=== PATIENT | male | born 1970 | race American Indian/Alaskan Native ===

== ENCOUNTER 2018-05-18 05:08 | Day surgery (SDC) | payer OTHER ==
[2018-05-17 10:18] VITALS: BMI 33.8
--- NOTE | 2018-05-18 09:44 | HP ---
History & Physical Update - History History: No Change - Physical Physical: No Change - Assessment Assessment: No Change - Plan Plan: No Change (Large ventral/ umbilical hernia for repair, laparoscopic / possible open with mesh. Procedure explained with risks, benefits and compications.)
[2018-05-18] MEDS ORDERED: ceFAZolin SODIUM 1 GM VIAL IVPB ONE (12:36)
[2018-05-18] MEDS ORDERED: ONDANSETRON 4 MG/2 ML VIAL IVPUSH PRN (12:59)
[2018-05-18] MEDS ORDERED: PROMETHAZINE HCL 25 MG/1 ML VIAL IVPUSH PRN (12:59)
--- NOTE | 2018-05-18 13:26 | OP ---
Operative Note - Note: Operative Date: 05/18/18 Pre-Operative Diagnosis: Incarcerated umbilical/ventral hernia Operation: Repair of incarcerated umbilical / ventral hernia with mesh. Findings: Large umbilical / ventral hernia with incarcerated omentum. Omentum reduced. Large 15cm. x10cm. ventralite mesh placed. Hernial sac excised and sent to pathology. Surgeon: Kashif Em Anesthesia: General Specimens Removed: Hernial sac. Estimated Blood Loss (mls): 10 Operative Report Dictated: Yes
[2018-05-18] MEDS ORDERED: MIDAZOLAM HCL 2 MG/2 ML SINGLE DOSE VIAL ONE (13:27)
[2018-05-18] MEDS ORDERED: PROPOFOL 20 ML ONE (13:34)
[2018-05-18] MEDS ORDERED: ROCURONIUM BROMIDE 50 MG/5 ML VIAL ONE ×2 (13:34→14:07)
[2018-05-18] MEDS ORDERED: ceFAZolin SODIUM 1 GM VIAL ONE (13:44)
[2018-05-18] MEDS ORDERED: NEOSTIGMINE METHYLSULFATE 0.5 MG/ML - 10 ML MDV ONE (15:24)
[2018-05-18] MEDS ORDERED: IBUPROFEN 400 MG TABLET (FP) PO PRN (15:39)
[2018-05-18] MEDS ORDERED: PROMETHAZINE HCL 25 MG/1 ML VIAL IVPB PRN (15:42)
[2018-05-18] MEDS ORDERED: oxyCODONE HCL 5 MG TABLET PO PRN (15:43)
[2018-05-18] MEDS ORDERED: ACETAMINOPHEN 325 MG TABLET (FP) PO PRN (15:43)
--- NOTE | 2018-05-18 15:59 | SURG ---
Surgery Chief I Dispatcher Note Chief I Dispatcher: Brandy Duarte PA-C Date of Service: 05/18/18 Diagnosis: Incarcerated umbilical/ventral hernia Procedure: Repair of incarcerated umbilical / ventral hernia with mesh. I was present for the entirety of the operative procedure. For further detail, please refer to operative report. Visit type - Case Type Case Type: Scheduled - Emergency Emergency Visit: No - New patient This patient is new to me today: Yes Date on this admission: 05/18/18
[2018-05-18] MEDS: LACTATED RINGERS SOLUTION 1,000 ML IV SCH (23:30)
[2018-05-19] MEDS: LACTATED RINGERS SOLUTION 1,000 ML IV SCH (08:52)
--- NOTE | 2018-05-19 09:11 | PN ---
Progress Note (short form) - Note Progress Note: post op day#1.S/P Laproscopic ventral hernia repair under GA uneventful.Patient stable.No any anesthesia related problem.Patient Dc from the anesthesia care.
[2018-05-19 10:02] VITALS: BP 119/51; PULSE 89; TEMP 98.9
--- NOTE | 2018-05-19 10:25 | OP ---
DATE OF OPERATION: 05/18/2018 PREOPERATIVE DIAGNOSIS: Incarcerated umbilical/ventral hernia. POSTOPERATIVE DIAGNOSIS: Incarcerated umbilical/ventral hernia. OPERATIVE PROCEDURE: Laparoscopic repair of incarcerated/ventral hernia with Ventralight mesh. SURGEON: Rene Em MD ELECTRICIAN SUPERVISOR: ANESTHESIA: General anesthesia. OPERATIVE DESCRIPTION: This 47-year-old man had a large hernia in the midline in the middle of the abdomen around the umbilicus measuring about 5 to 6 cm in diameter. He also had incarceration. The patient was brought in for repair of the defect. Consent was obtained. Risks, benefits, and complications have been discussed with the patient. The patient was given general anesthesia. The abdomen painted and draped. A timeout was called. An incision was made in the subxiphoid area in the midline for over 10 mm. This was carried down through the skin, subcutaneous tissue, through the linea alba, and through the peritoneum. Stay sutures of 2-0 Vicryl were obtained to hold the trocar in place. Next, 10-12-mm laparoscopic trocar of the Chau type was introduced into the abdominal cavity. The abdomen was inflated with carbon dioxide at 6 L per minute with maximum abdominal pressure 15 mmHg. Four 5-mm trocars were inserted, 2 on each side, 1 in the upper outer quadrant below the costal margin, and another in the left and right lower quadrant of the abdomen laterally. These were noted entering the abdominal cavity under direct vision of the camera. A 10-mm camera was inserted in the subxiphoid port and abdominal cavity was inspected. The patient had a large defect in the midline with incarceration of omentum and fat. This was carefully reduced into the abdominal cavity. The edges of the hernia were then freshened using the Harmonic scalpel and the peritoneum was reduced in the abdominal cavity. The sac was excised and sent to Pathology. This was removed out of the abdominal cavity. The defect was then measured. The patient required a 15 x 10-cm Ventralight mesh to cover the defect adequately. This was then introduced into the abdominal cavity. The central inflatable portion of the tube was then brought through the center of the umbilicus and the balloon was inserted within the mesh against the anterior abdominal wall. This was then anchored at the level of the skin, thus holding the mesh against the anterior abdominal wall. The mesh was then anchored with the metallic tacker circumferentially at the edge to the anterior abdominal wall, making sure that the mesh was centered appropriately in the center of the defect. Once this was done , the AbsorbaTack was placed on the inner aspect between the periphery and the central portion of the mesh. This was placed circumferentially. During placement of the mesh, the abdomen was partially deflated. In addition to this, a 0 Prolene was passed above and below the umbilicus circumferentially around the abdominal wall by making two small holes away from the midline above and below the defect. Using the suture passer, a 0 Prolene was passed from the skin into the abdominal wall and brought across on the opposite side by passing the suture passer again and bringing the Prolene from the abdominal cavity through the skin on the opposite side. Then, the Prolene was brought to one side beneath the skin. The abdominal wall was then brought together by approximating the number-1 Prolene suture. Two sutures were obtained, one above and below the umbilicus, thus approximating the abdominal wall as well, in addition to placing the mesh after the abdominal wall was approximated. The defect was adequately covered. The abdomen was deflated. There was no bleeding and no defect between the tackers. Once this was done, the instruments were removed. The linea alba in the midline and subxiphoid area was approximated with interrupted and [id number] 2-0 Vicryl sutures. Marcaine 0.5% was injected into the wound. The skin was approximated with buried interrupted 4-0 Monocryl sutures. An abdominal binder was placed. Dermabond was applied across the skin edges. The patient tolerated the procedure well. Estimated blood loss was less than 10 mL. Sponge count and instrument count was correct. The patient was extubated and sent to the recovery room in satisfactory and stable condition. Chrissie [id number] MTDLanette
--- NOTE | 2018-05-22 15:04 | PATH ---
Surgical Pathology Report Patient Name: NATHANIEL BALTAZAR [facility]. Rec. #: [id number] /Age/Gender: 1970 (Age: 47) / M Account: [id number] Location: AMBULATORY SURG Taken: 05/18/2018 Received: 05/21/2018 Reported: 05/22/2018 Physicians: Rene Em M.D. Specimen(s) Received HERNIA SAC Clinical History Incisional hernia with obstruction, without gangrene Final Diagnosis HERNIA SAC, LAPAROSCOPIC REPAIR OF INCARCERATED VENTRAL HERNIA: MESOTHELIAL LINED FIBROMEMBRANOUS AND FIBROADIPOSE TISSUE CONSISTENT WITH HERNIA SAC. Electronically Signed Chantal Urena M.D. Gross Description Received in formalin labeled "hernia sac," is a 2.0 x 1.4 x 1.2 cm vitale riddle portion of fibromembranous tissue with minimal attached fat, consistent with a hernia sac. Floor Plan Adjuster sections are submitted in one cassette. /05/21/2018 saudi05/21/2018
== END 2018-05-19 12:58 | disposition home or self-care (01) ==
LOC: JASUSAT 05:08 → J8W 17:05 → JASUSAT 05-19 12:58
PROVIDERS: ATTEND Specialist
PROC: 0WUF4JZ Supplement Abdominal Wall with Synthetic Substitute, Percutaneous Endoscopic Approach (ICD-10-PCS; principal; 2018-05-18 12:30)
DX: K43.6 Other and unspecified ventral hernia with obstruction, without gangrene (principal); I10 Essential (primary) hypertension; E11.9 Type 2 diabetes mellitus without complications; Z79.84 Long term (current) use of oral hypoglycemic drugs
CPT/HCPCS: 82962; 88302-TC; 94760

== ENCOUNTER 2019-07-07 06:21 | Emergency (ER) | payer OTHER ==
[2019-07-07 07:11] VITALS: BP 114/72; PULSE 75; TEMP 98; BMI 32.8
--- NOTE | 2019-07-07 07:57 | PDOC ---
History of Present Illness - General Chief Complaint: Respiratory Stated Complaint: COLD Time Seen by Provider: 07/07/19 07:28 History Source: Patient - History of Present Illness Timing/Duration: reports: yesterday Associated Symptoms: reports: cough, nasal congestion, nasal drainage Past History - Past Medical History Allergies/Adverse Reactions: Allergies Allergy/AdvReac Type Severity Reaction Status Date / Time No Known Allergies Allergy Verified 07/07/19 07:10 Home Medications: Ambulatory Orders Atorvastatin Ca [Lipitor] 40 mg PO HS 05/17/18 Glyburide/Metformin HCl [Glyburide-Metformin 5-500 mg] 1 each PO BID 05/17/18 Lisinopril [Prinivil -] 40 mg PO DAILY 05/17/18 Aspirin [Aspirin EC] 81 mg PO DAILY 05/18/18 Canagliflozin [Invokana] 100 mg PO DAILY 05/18/18 Docusate Sodium [Colace] 100 mg PO ONCE #10 capsule MDD 1 05/18/18 Ibuprofen [Motrin -] 400 mg PO TID #21 tablet 05/18/18 Linagliptin [Tradjenta] 5 mg PO DAILY 05/18/18 Oxycodone HCl/Acetaminophen [Percocet 5-325 mg Tablet] 1 tab PO Q6H #20 tablet MDD 3 05/18/18 COPD: No Diabetes: Yes HTN: Yes Hypercholesterolemia: Yes - Surgical History Orthopedic Surgery: Yes (rt. knee arthroscopy) - Psycho Social/Smoking Cessation Hx Smoking History: Never smoked Have you smoked in the past 12 months: No If you are a former smoker, when did you quit?: quit 12 years ago Hx Alcohol Use: No Drug/Substance Use Hx: No Respiratory Specific PMHX - Complaint Specific PMHX Hx Bronchitis: Yes Hx Pneumonia: No Hx Pulmonary Embolus: No Hx TB (Tuberculosis): No Review of Systems - Review of Systems Constitutional: No: Fever Respiratory: Yes: Cough. No: Shortness of Breath, Wheezing *Physical Exam - Vital Signs Last Vital Signs Temp Pulse Resp BP Pulse Ox 98 F 75 18 114/72 99 07/07/19 07:08 07/07/19 07:08 07/07/19 07:08 07/07/19 07:08 07/07/19 07:08 - Physical Exam General Appearance: Yes: Appropriately Dressed. No: Apparent Distress HEENT: positive: Normal ENT Inspection, Normal Voice. negative: Scleral Icterus (R), Scleral Icterus (L) Neck: positive: Supple Respiratory/Chest: positive: Lungs Clear, Normal Breath Sounds. negative: Respiratory Distress Cardiovascular: positive: Regular Rate, S1, S2 Integumentary: positive: Dry, Warm Neurologic: positive: Fully Oriented, Alert, Normal Mood/Affect Medical Decision Making - Medical Decision Making 07/07/19 07:52 49 yo M, history of DM, here with cough, congestion and rhinorrhea for 2 days. No SOB, CP, body aches, f/c see exam M/l viral URI Exam wnl Dc w/ supportive tx Discharge - Discharge Information Problems reviewed: Yes Clinical Impression/Diagnosis: URI (upper respiratory infection) Qualifiers: URI type: unspecified viral URI Qualified Code(s): J06.9 - Acute upper respiratory infection, unspecified Condition: Good Disposition: HOME - Follow up/Referral Referrals: Brayan Goode MD [Primary Care Provider] - - Patient Discharge Instructions Patient Printed Discharge Instructions: DI for Viral Upper Respiratory Infection -- Adult - Post Discharge Activity
== END 2019-07-07 08:02 | disposition home or self-care (01) ==
LOC: JER 06:21
DX: J06.9 Acute upper respiratory infection, unspecified (principal); B97.89 Other viral agents as the cause of diseases classified elsewhere; I10 Essential (primary) hypertension; E11.9 Type 2 diabetes mellitus without complications; Z79.84 Long term (current) use of oral hypoglycemic drugs; E78.00 Pure hypercholesterolemia, unspecified
CPT/HCPCS: 99281-25

== ENCOUNTER 2019-07-31 08:41 | Day surgery (SDC) | payer OTHER ==
[2019-07-31 09:15] VITALS: BMI 32.8
[2019-07-31 10:44] VITALS: TEMP 98.2
[2019-07-31 11:42] VITALS: BP 101/56; PULSE 71
[2019-07-31 11:54] LABS: BASO % 0.3 % (0-2.0); EOS % 0.5 % (0-4.5); HEMATOCRIT 43.9 % (35.4-49); HEMOGLOBIN 14.1 GM/dL (11.7-16.9); LYMPH % 30.6 % (8-40); MCH 23.8 pg (25.7-33.7); MCHC 32.1 g/dl (32.0-35.9); MEAN CELL VOLUME 74.1 fl (80-96); MEAN PLT VOLUME 7.2 fl (7.5-11.1); MONO % 6.4 % (3.8-10.2); NEUT % 62.2 % (42.8-82.8); PLATELET COUNT 320 K/MM3 (134-434); RBC 5.92 M/mm3 (4.00-5.60); RDW 16.5 % (11.9-15.9); WHITE BLOOD COUNT 5.8 K/mm3 (4.0-10.0)
[2019-07-31 12:06] LABS: INR 1.03 (0.83-1.09); PROTHROMBIN TIME (PATIENT) 12.2 SEC (9.7-13.0)
[2019-07-31 12:56] LABS: ALBUMIN 3.9 g/dl (3.4-5.0); ALK PHOS 78 U/L (45-117); ANION GAP 7 MMOL/L (8-16); BILIRUBIN,TOTAL 0.6 mg/dL (0.2-1); BLOOD UREA NITROGEN 13.2 mg/dL (7-18); CALCIUM 9.5 mg/dL (8.5-10.1); CHLORIDE 106 mmol/L (98-107); CO2 27 mmol/L (21-32); CREATININE 0.8 mg/dL (0.55-1.3); GLUCOSE,RANDOM 132 mg/dL (74-106); POTASSIUM 4.3 mmol/L (3.5-5.1); SGOT/AST 26 U/L (15-37); SGPT/ALT 50 U/L (13-61); SODIUM 141 mmol/L (136-145); TOT PROT 7.8 g/dl (6.4-8.2)
== END 2019-07-31 11:50 | disposition home or self-care (01) ==
LOC: JASU-ENDO 08:41
PROVIDERS: ATTEND Internal Medicine Gastroenterology
PROC: 0DJD8ZZ Inspection of Lower Intestinal Tract, Via Natural or Artificial Opening Endoscopic (ICD-10-PCS; principal; 2019-07-31 09:30)
DX: Z51.11 Encounter for antineoplastic chemotherapy (principal)
CPT/HCPCS: 36415; 80053; 85025; 85610; 86140

== ENCOUNTER 2019-08-31 10:46 | Emergency (ER) | payer OTHER ==
[2019-08-31 10:55] VITALS: BP 121/72; PULSE 98; TEMP 98.2; BMI 33.8
[2019-08-31] MEDS ORDERED: ACETAMINOPHEN WITH CODEINE 300MG/30MG TABLET PO ONE (11:14)
[2019-08-31] MEDS ORDERED: ACETAMINOPHEN WITH CODEINE 300MG/30MG TABLET ONE (11:17)
--- NOTE | 2019-08-31 11:20 | PDOC ---
History of Present Illness - General Chief Complaint: Cold Symptoms Stated Complaint: COLD SYMPTOMS Time Seen by Provider: 08/31/19 11:06 History Source: Patient Exam Limitations: No Limitations - History of Present Illness Initial Comments: 08/31/19 11:15 HISTORY OF PRESENT ILLNESS: 49-year-old male past medical history of non-insulin -dependent diabetes presents emergency department for evaluation of 2 days of fevers, moist productive cough, sore throat and runny nose. Patient reports he is having productive cough with yellow sputum and additionally having some vomiting. Reports vomiting started his undigested food and became bilious. He denies abdominal pain, chest pain, shortness of breath, headaches, facial pain. No recent travel or sick contacts. PAST MEDICAL HISTORY: See HPI SURGICAL HISTORY: Denies ALLERGIES: No known drug allergies REVIEW OF SYSTEMS General/Constitutional: Denies fever or chills. Denies weakness, weight change. HEENT: See HPI Cardiovascular: Denies chest pain or shortness of breath. Respiratory: See HPI Gastrointestinal: Denies nausea, vomiting, diarrhea or constipation. Denies rectal bleeding. Genitourinary: Denies dysuria, frequency, or change in urination. Musculoskeletal: Denies joint or muscle swelling or pain. Denies neck or back pain. Skin and breasts: Denies rash or easy bruising. Neurologic: Denies headache, vertigo, loss of consciousness, or loss of sensation. Psychiatric: Denies depression or anxiety. Endocrine: Denies increased thirst. Denies abnormal weight change. Hematologic/Lymphatic: Denies anemia, easy bleeding, or history of blood clots. Allergic/Immunologic: Denies hives or skin allergy. Denies latex allergy. PHYSICAL EXAM General Appearance: Well-appearing, appropriately dressed. No apparent distress , no intoxication. HEENT: EOMI, PERRLA, normal ENT inspection, normal voice, pharynx normal. No conjunctival pallor. No photophobia, scleral icterus. TMs with retractions noted bilaterally. Neck: Supple. Trachea midline. No tenderness, rigidity, carotid bruit, stridor , lymphadenopathy, or thyromegaly. Respiratory/Chest: Lungs CTAB. No shortness of breath, chest tenderness, respiratory distress, accessory muscle use. No crackles, rales, rhonchi, stridor , wheezing, dullness Cardiovascular: RRR. S1, S2. No JVD, murmur, bradycardia, tachycardia. Gastrointestinal/Abdominal: Normal bowel sounds. Abdomen soft, non-distended. No tenderness or rebound tenderness. No organomegaly, pulsatile mass, guarding, hernia, hepatomegaly, splenomegaly. Neurologic: boots and shoes supervisor II-XII intact. Fully oriented, alert. Appropriate mood/affect. Motor strength 5/5. No appreciable EOM palsy, facial droop or sensory deficit. Past History - Past Medical History Allergies/Adverse Reactions: Allergies Allergy/AdvReac Type Severity Reaction Status Date / Time No Known Allergies Allergy Verified 07/07/19 07:10 Home Medications: Ambulatory Orders Atorvastatin Ca [Lipitor] 40 mg PO HS 05/17/18 Lisinopril [Prinivil -] 40 mg PO DAILY 05/17/18 Aspirin [Aspirin EC] 81 mg PO DAILY 05/18/18 Metformin HCl [Glucophage] 1,000 mg PO BID 07/30/19 Vitamin E 400 unit PO DAILY 07/30/19 Benzonatate [Tessalon Pearls -] 200 mg PO TID PRN #42 cap 08/31/19 Anemia: No Asthma: No Cancer: No Cardiac Disorders: No CVA: No COPD: No CHF: No Dementia: No Diabetes: Yes GI Disorders: No Disorders: No HTN: Yes Hypercholesterolemia: Yes Liver Disease: Yes (RAMOS) Seizures: No Thyroid Disease: No - Surgical History Abdominal Surgery: Yes (Umbilical Hernia repair 05/18/2018) Appendectomy: No Cardiac Surgery: No Cholecystectomy: No Lung Surgery: No Neurologic Surgery: No Orthopedic Surgery: Yes (rt. knee arthroscopy) - Psycho Social/Smoking Cessation Hx Smoking History: Never smoked Have you smoked in the past 12 months: No If you are a former smoker, when did you quit?: quit 12 years ago Hx Alcohol Use: No Drug/Substance Use Hx: No Substance Use Type: None Hx Substance Use Treatment: No Respiratory Specific PMHX - Complaint Specific PMHX Hx Bronchitis: Yes Hx Pneumonia: No Hx Pulmonary Embolus: No Hx TB (Tuberculosis): No *Physical Exam - Vital Signs Last Vital Signs Temp Pulse Resp BP Pulse Ox 98.2 F 98 H 17 121/72 96 08/31/19 10:52 08/31/19 10:52 08/31/19 10:52 08/31/19 10:52 08/31/19 10:52 Medical Decision Making - Medical Decision Making 08/31/19 11:19 A/P: 49-year-old male with upper respiratory symptoms for the past 2 to 3 days. Most likely viral in nature but as patient is a diabetic I will get a rapid strep test to rule out bacterial etiology. Tylenol #3- 1 tablet now for pain and cough. Reassess 08/31/19 11:41 Rapid strep testing is negative. I will discharge the patient home with supportive treatment of upper respiratory infection. Patient is to follow-up with his primary doctor within the next 3 days for reevaluation of his symptoms. Discharge - Discharge Information Problems reviewed: Yes Clinical Impression/Diagnosis: URI (upper respiratory infection) Qualifiers: URI type: unspecified viral URI Qualified Code(s): J06.9 - Acute upper respiratory infection, unspecified Condition: Stable Disposition: HOME - Admission No - Additional Discharge Information Prescriptions: Benzonatate [Tessalon Pearls -] 200 mg PO TID PRN #42 cap PRN Reason: Cough - Follow up/Referral Referrals: Brayan Goode MD [Primary Care Provider] - - Patient Discharge Instructions Additional Instructions: Rest, drink lots of fluids: Teas, water, soups, Pedialyte Saltwater gargles Steamy showers/seem to face break up mucus Avoid contact with others until fevers and cough resolved Lots of handwashing and good hygiene Continue [id number] medications for symptomatic relief Tylenol or Motrin for fever and pain Followup with private physician in one to 2 days as needed Return to emergency department for worsened symptoms, fevers, dehydration - Post Discharge Activity Work/Back to School Note: Back to Work
== END 2019-08-31 11:47 | disposition home or self-care (01) ==
LOC: JERFT 10:46
DX: J06.9 Acute upper respiratory infection, unspecified (principal); B97.89 Other viral agents as the cause of diseases classified elsewhere; I10 Essential (primary) hypertension; E11.9 Type 2 diabetes mellitus without complications; Z79.84 Long term (current) use of oral hypoglycemic drugs; E78.00 Pure hypercholesterolemia, unspecified; K75.81 Nonalcoholic steatohepatitis (NASH)
CPT/HCPCS: 87070; 87880; 99283-25

== ENCOUNTER 2022-08-19 12:05 | Emergency (ER) | payer OTHER ==
[2022-08-19 12:12] VITALS: BP 131/76; PULSE 115; RESP 20; TEMP 98.4; BMI 32.9
== END 2022-08-19 14:19 | disposition home or self-care (01) ==
LOC: JERFT 12:05
DX: M79.675 Pain in left toe(s) (principal)
CPT/HCPCS: 99282-25

== ENCOUNTER 2022-11-18 23:12 | Observation (INO) | payer OTHER ==
[2022-11-19] MEDS ORDERED: CEFTRIAXONE 1,000 MG in DEXTROSE 5%-WATER - 50 ML IVPB ONE (01:47)
[2022-11-19] MEDS ORDERED: AZITHROMYCIN 500 MG TABLET PO ONE (01:47)
[2022-11-19] MEDS ORDERED: DOXYCYCLINE HYCLATE 100 MG CAPSULE PO ONE ×2 (01:49→02:40)
[2022-11-19] MEDS ORDERED: guaiFENesin 200 MG/10 ML 10 ML UNIT-DOSE CUPS PO ONE (01:50)
[2022-11-19 02:00] LABS: BASO % 0.3 % (0-2.0); EOS % 1.7 % (0-4.5); HEMOGLOBIN 12.9 GM/dL (11.7-16.9); LYMPH % 30.5 % (8-40); MCH 24.4 pg (25.7-33.7); MEAN CELL VOLUME 73.8 fl (80-96); MEAN PLT VOLUME 7.7 fl (7.5-11.1); MONO % 9.2 % (3.8-10.2); NEUT % 58.3 % (42.8-82.8); PLATELET COUNT 291 10^3/uL (134-434); RBC 5.28 M/mm3 (4.00-5.60); WHITE BLOOD COUNT 6.3 K/mm3 (4.0-10.0)
[2022-11-19 02:22] LABS: CHLORIDE 101 mmol/L (98-107); SODIUM 129 mmol/L (136-145)
[2022-11-19 02:24] LABS: CALCIUM 9.2 mg/dL (8.5-10.1)
[2022-11-19 02:25] LABS: ALBUMIN 3.5 g/dl (3.4-5.0); BLOOD UREA NITROGEN 16.5 mg/dL (7-18); CO2 26 mmol/L (21-32); GLUCOSE,RANDOM 218 mg/dL (74-106)
[2022-11-19 02:28] LABS: SGOT/AST 106 U/L (15-37)
[2022-11-19 02:29] LABS: BILIRUBIN,TOTAL 0.4 mg/dL (0.2-1)
[2022-11-19 02:31] LABS: ALK PHOS 63 U/L (45-117)
[2022-11-19 02:33] LABS: N-TERMINAL BNP 64.5 pg/ml (5-125)
[2022-11-19] MEDS ORDERED: ALBUTEROL SO4 2.5/IPRATROPIUM 0.5 INH SOL 3 ML VIAL.NEB. NEB ONE ×2 (02:39→06:30)
[2022-11-19] MEDS ORDERED: guaiFENesin/CODEINE 10 ML UNIT-DOSE CUPS ONE (02:41)
[2022-11-19] MEDS ORDERED: CEFTRIAXONE 1 GM/50 ML BAG ONE (02:41)
[2022-11-19 02:43] LABS: ANION GAP 3 MMOL/L (8-16); SGPT/ALT 63 U/L (13-61)
[2022-11-19] MEDS: ALBUTEROL SO4 2.5/IPRATROPIUM 0.5 INH SOL 3 ML VIAL.NEB. NEB SCH ×2 (02:48→06:40)
[2022-11-19 03:43] LABS: ALBUMIN 3.3 g/dl (3.4-5.0); BLOOD UREA NITROGEN 16.7 mg/dL (7-18); CALCIUM 9.6 mg/dL (8.5-10.1)
[2022-11-19 03:47] LABS: CREATININE 0.8 mg/dL (0.55-1.3)
[2022-11-19 03:48] LABS: BILIRUBIN,TOTAL 0.4 mg/dL (0.2-1)
[2022-11-19] MEDS ORDERED: ALBUTEROL SO4 HFA INHALER IH PRN (06:35)
[2022-11-19 06:57] LABS: HEMATOCRIT 37.2 % (35.4-49); HEMOGLOBIN 12.1 GM/dL (11.7-16.9); MCH 24.1 pg (25.7-33.7); MCHC 32.7 g/dl (32.0-35.9); MEAN CELL VOLUME 73.7 fl (80-96); MEAN PLT VOLUME 7.9 fl (7.5-11.1); PLATELET COUNT 286 10^3/uL (134-434); RBC 5.05 M/mm3 (4.00-5.60); RDW 17.1 % (11.9-15.9); WHITE BLOOD COUNT 6.1 K/mm3 (4.0-10.0)
[2022-11-19 07:32] LABS: CHLORIDE 100 mmol/L (98-107); SODIUM 133 mmol/L (136-145)
[2022-11-19 07:34] LABS: CALCIUM 9.3 mg/dL (8.5-10.1); CO2 28 mmol/L (21-32); GLUCOSE,RANDOM 207 mg/dL (74-106); MAGNESIUM 1.9 mg/dL (1.8-2.4)
[2022-11-19 07:35] LABS: BLOOD UREA NITROGEN 16.7 mg/dL (7-18)
[2022-11-19 07:38] LABS: CREATININE 0.9 mg/dL (0.55-1.3); PHOSPHOROUS 4.2 mg/dL (2.5-4.9)
[2022-11-19 07:47] LABS: ANION GAP 5 MMOL/L (8-16); POTASSIUM 7.5 mmol/L (3.5-5.1)
[2022-11-19] MEDS: INSULIN SLIDING SCALE (NOVOLOG) 1 VIAL SQ SCH ×3 (08:00→18:00)
[2022-11-19 08:29] LABS: IRON SERUM 55 ug/dL (50-175); TOTAL IRON BINDING CAPACITY 460 ug/dL (250-450)
[2022-11-19] MEDS ORDERED: methylPREDNISolone NA SUCC 40 MG/1 ML VIAL IVPUSH SCH (10:00)
[2022-11-19] MEDS ORDERED: AZITHROMYCIN 250 MG TABLET PO SCH (10:00)
[2022-11-19] MEDS: ENOXAPARIN NA (PORCINE) 40 MG/0.4 ML DISP.SYRIN SQ SCH (10:59)
[2022-11-19] MEDS: ASPIRIN COATED 81 MG TABLET.EC PO SCH (10:59)
[2022-11-19] MEDS: levoFLOXacin 750 MG TABLET PO SCH (10:59)
[2022-11-19] MEDS ORDERED: ASPIRIN COATED 81 MG TABLET.EC ONE (11:00)
[2022-11-19] MEDS ORDERED: ENOXAPARIN NA (PORCINE) 40 MG/0.4 ML DISP.SYRIN SQ ONE (11:00)
[2022-11-19] MEDS ORDERED: methylPREDNISolone NA SUCC 40 MG/1 ML VIAL ONE (11:00)
[2022-11-19] MEDS ORDERED: IRON SUCROSE INJECTION 200 MG in SODIUM CHLORIDE 90 ML IVPB ONE (11:33)
[2022-11-19] MEDS: methylPREDNISolone NA SUCC 40 MG/1 ML VIAL IVPUSH SCH ×2 (14:05→21:52)
[2022-11-19 18:50] VITALS: RESP 18
[2022-11-19 20:51] VITALS: BMI 35.3
[2022-11-19] MEDS ORDERED: ATORVASTATIN CA 40 MG TABLET (FP) PO SCH (22:00)
[2022-11-20] MEDS: methylPREDNISolone NA SUCC 40 MG/1 ML VIAL IVPUSH SCH ×2 (06:12→15:07)
[2022-11-20] MEDS: levoFLOXacin 750 MG TABLET PO SCH (06:12)
[2022-11-20] MEDS: INSULIN SLIDING SCALE (NOVOLOG) 1 VIAL SQ SCH ×3 (06:12→17:06)
[2022-11-20 08:19] VITALS: BP 137/88; PULSE 92; TEMP 97.5
[2022-11-20 08:20] LABS: BASO % 0.1 % (0-2.0); HEMOGLOBIN 13.5 GM/dL (11.7-16.9); LYMPH % 14.9 % (8-40); MCH 23.8 pg (25.7-33.7); MCHC 32.1 g/dl (32.0-35.9); MEAN PLT VOLUME 6.9 fl (7.5-11.1); MONO % 4.2 % (3.8-10.2); NEUT % 80.8 % (42.8-82.8); PLATELET COUNT 335 10^3/uL (134-434); RBC 5.67 M/mm3 (4.00-5.60); RDW 17.1 % (11.9-15.9); WHITE BLOOD COUNT 5.6 K/mm3 (4.0-10.0)
[2022-11-20 08:34] LABS: POTASSIUM 4.6 mmol/L (3.5-5.1)
[2022-11-20 08:36] LABS: BLOOD UREA NITROGEN 22.2 mg/dL (7-18)
[2022-11-20 08:39] LABS: CREATININE 0.6 mg/dL (0.55-1.3)
[2022-11-20] MEDS ORDERED: INSULIN (NOVOLOG) ASPART 100 UNITS/ML 10ML VIAL ONE ×2 (11:00→16:30)
[2022-11-20] MEDS: ENOXAPARIN NA (PORCINE) 40 MG/0.4 ML DISP.SYRIN SQ SCH (11:04)
[2022-11-20] MEDS: ASPIRIN COATED 81 MG TABLET.EC PO SCH (11:05)
== END 2022-11-20 16:55 | disposition home or self-care (01) ==
LOC: JER 23:12 → UNDOADMOB 11-19 04:30 → JERBED 11-19 04:30 → INTOOBSV 11-19 04:30 → JERBED 11-19 06:20 → J7W 11-19 18:37
PROVIDERS: ADMIT Internal Medicine
PROC: 3E0F7GC Introduction of Other Therapeutic Substance into Respiratory Tract, Via Natural or Artificial Opening (ICD-10-PCS; principal; 2022-11-19)
PROC: 3E03329 Introduction of Other Anti-infective into Peripheral Vein, Percutaneous Approach (ICD-10-PCS; 2022-11-19)
PROC: 3E023GC Introduction of Other Therapeutic Substance into Muscle, Percutaneous Approach (ICD-10-PCS; 2022-11-19)
PROC: 3E033GC Introduction of Other Therapeutic Substance into Peripheral Vein, Percutaneous Approach (ICD-10-PCS; 2022-11-19)
DX: J44.1 Chronic obstructive pulmonary disease with (acute) exacerbation (principal); J18.9 Pneumonia, unspecified organism; E11.9 Type 2 diabetes mellitus without complications; I10 Essential (primary) hypertension; E78.5 Hyperlipidemia, unspecified; E66.8 Other obesity; Z68.35 Body mass index [BMI] 35.0-35.9, adult
CPT/HCPCS: 0241U-QW; 36415; 71046-TC-FY; 71250-TC; 80048; 80053; 82607; 82728; 82746; 82962; 83540; 83550; 83735; 83880; 84100; 84132; 84484; 85025; 85027; 85379; 93005; 93010; 94640; 96365; 96367; 96372; 96375; 99285-25; G0378; J1756

== ENCOUNTER 2023-01-01 12:58 | Emergency (ER) | payer OTHER ==
[2023-01-01 13:08] VITALS: BP 133/69; PULSE 104; RESP 18; BMI 34.7
[2023-01-01 13:43] VITALS: TEMP 98.9
[2023-01-01] MEDS ORDERED: MAG HYDROX/ALH/SMC/DPHA/LIDO 240 ML MOUTHWASH MM SCH (18:00)
== END 2023-01-01 15:40 | disposition home or self-care (01) ==
LOC: JERFT 12:58
DX: K08.89 Other specified disorders of teeth and supporting structures (principal)
CPT/HCPCS: 99283-25